=== PATIENT | female | born 1985 | race Caucasian/White ===

== ENCOUNTER 2017-06-23 12:08 | Emergency (ER) | payer OTHER, MEDICAID ==
[~2017-06-23] VITALS: Ht 170.2 cm; Wt 85.0 kg
[~2017-06-23 12:08] MED LIST: CIPRO500 MG OR; IBUPROFEN600 MG PO; LORTAB 5/3255 MG PO; NECON OR; PAIN RELIEF650 MG PO; PRENATABS RX PO; PYRIDIUM200 MG OR; TUMS500 MG PO
[2017-06-23 13:10] LABS: HEMATOCRIT 35.2 % (37.0-47.0); HEMOGLOBIN 12.3 g/dl (12.0-16.0); IMMATURE GRANULOCYTES 0.4 % (0.0-1.0); MEAN CELL VOLUME 91.2 fL CALC (80.0-100.0); MEAN CORPUSCULAR HGB 31.9 pG CALC (26.0-32.0); MEAN CORPUSCULAR HGB CONC 34.9 g/L CALC (32.0-36.0); NEUT# 5.95 thou/uL (2.00-7.15); RED BLOOD COUNT 3.86 mill/uL (4.20-5.60); RED CELL DISTRI WIDTH 12.6 % (11.5-15.5)
[2017-06-23 13:30] LABS: ALBUMIN 3.7 g/dL (3.2-5.0); ALKALINE PHOSPHATASE 42 u/l (38-126); ANION GAP 13 (6-22 (CALC)); BILIRUBIN, TOTAL 0.9 mg/dL (0.0-1.4); BUN 7 mg/dL (7-17); BUN/CREATININE RATIO 12 (12-20 (CALC)); CARBON DIOXIDE 23 mmol/l (22-30); CHLORIDE 106 mmol/l (95-108); CREATININE 0.6 mg/dL (0.5-1.0); GFR > 60 ML/MIN (>=60 (CALC)); GFR FOR AFR.AMER. > 60 ML/MIN (>=60 (CALC)); GLUCOSE 98 mg/dL (65-105); POTASSIUM 3.8 mmol/l (3.5-5.1); SGOT/AST 22 u/l (14-36); SGPT/ALT 25 u/l (9-52); SODIUM 138 mmol/l (137-146); TOTAL PROTEIN 6.4 g/dL (6.3-8.2)
[2017-06-23] MEDS ORDERED: CIPROFLOXACN500 MG PO (14:35)
[2017-06-23] MEDS ORDERED: LOMOTIL2.5 MG PO (14:35)
[2017-06-23 17:30] VITALS: BP 97/59
== END 2017-06-23 17:30 | disposition home or self-care (01) | DRG 781 ==
LOC: ED 12:08
PROVIDERS: Emergency Medicine
DX: O26.892 Other specified pregnancy related conditions, second trimester (principal); K52.9 Noninfective gastroenteritis and colitis, unspecified; R10.31 Right lower quadrant pain; Z3A.18 18 weeks gestation of pregnancy; R11.0 Nausea

== ENCOUNTER 2017-12-08 01:52 | Emergency (ER) | payer OTHER, MEDICAID ==
[~2017-12-08] VITALS: Ht 170.2 cm; Wt 72.4 kg
[~2017-12-08 01:52] MED LIST changes: +CIPROFLOXACN500 MG PO; +LOMOTIL2.5 MG PO
[2017-12-08 02:22] LABS: URINE BILIRUBIN - DIPSTICK SMALL (NEGATIVE); URINE BLOOD DIPSTICK LARGE (NEGATIVE); URINE COLOR ORANGE; URINE GLUCOSE - DIPSTICK 100 mg/dL (NEGATIVE); URINE KETONE TRACE mg/dL (NEGATIVE); URINE LEUK ESTERASE MODERATE (NEGATIVE); URINE NITRITE - DIPSTICK POSITIVE (Negative); URINE PH 5.5 (4.5-8.0); URINE PROTEIN - DIPSTICK >=300 mg/dL (NEG-TRACE); URINE UROBILINOGEN - DIPSTICK >=8.0 E.U./dL (0.2)
[2017-12-08 02:26] LABS: URINE CLARITY SL CLOUDY
[2017-12-08 02:52] LABS: URINE WBC 20-50 WBC/hpf (0-5)
[2017-12-08 02:57] LABS: URINE BACTERIA MODERATE hpf; URINE TRICHOMONAS RARE hpf
[2017-12-08] MEDS ORDERED: PYRIDIUM200 MG PO (03:04)
[2017-12-08] MEDS ORDERED: BACTRIM DS1 TAB PO (03:04)
[2017-12-08 03:15] VITALS: BP 119/76
== END 2017-12-08 03:17 | disposition home or self-care (01) | DRG 776 ==
LOC: ED 01:52
PROVIDERS: Emergency Medicine
DX: O86.20 Urinary tract infection following delivery, unspecified (principal); R19.7 Diarrhea, unspecified

== ENCOUNTER 2018-03-06 15:44 | Emergency (ER) | payer OTHER ==
[~2018-03-06] VITALS: Ht 170.2 cm; Wt 65.0 kg
[~2018-03-06 15:44] MED LIST changes: +BACTRIM DS1 TAB PO; +PYRIDIUM200 MG PO
[2018-03-06 17:28] LABS: URINE BILIRUBIN - DIPSTICK NEGATIVE (NEGATIVE); URINE BLOOD DIPSTICK MODERATE (NEGATIVE); URINE COLOR YELLOW; URINE GLUCOSE - DIPSTICK NEGATIVE (NEGATIVE); URINE KETONE NEGATIVE (NEGATIVE); URINE NITRITE - DIPSTICK NEGATIVE (Negative); URINE PH 6.5 (4.5-8.0); URINE PROTEIN - DIPSTICK NEGATIVE (NEG-TRACE); URINE UROBILINOGEN - DIPSTICK 0.2 E.U./dL (0.2)
[2018-03-06 17:30] LABS: URINE CLARITY HAZY; URINE LEUK ESTERASE SMALL (NEGATIVE)
[2018-03-06 17:35] LABS: HEMATOCRIT 34.2 % (37.0-47.0); HEMOGLOBIN 11.6 g/dl (12.0-16.0); IMMATURE GRANULOCYTES 0.4 % (0.0-5.0); MEAN CELL VOLUME 91.4 fL CALC (80.0-100.0); MEAN CORPUSCULAR HGB CONC 33.9 g/L CALC (32.0-36.0); NEUT# 6.64 thou/uL (2.00-7.15); RED BLOOD COUNT 3.74 mill/uL (4.20-5.60); RED CELL DISTRI WIDTH 12.6 % (11.5-15.5)
[2018-03-06 17:39] LABS: URINE SQUAMOUS EPITHELIAL CELL MODERATE EPI/hpf (0-FEW)
[2018-03-06 17:46] LABS: ALBUMIN 3.7 g/dL (3.2-5.0); ALKALINE PHOSPHATASE 86 u/l (38-126); ANION GAP 15 (6-22 (CALC)); BILIRUBIN, TOTAL 0.9 mg/dL (0.0-1.4); BUN 5 mg/dL (7-17); BUN/CREATININE RATIO 10 (12-20 (CALC)); CARBON DIOXIDE 25 mmol/l (22-30); CHLORIDE 101 mmol/l (95-108); CREATININE 0.5 mg/dL (0.5-1.0); GFR > 60 ML/MIN (>=60 (CALC)); GFR FOR AFR.AMER. > 60 ML/MIN (>=60 (CALC)); LIPASE 34 u/l (23-300); POTASSIUM 3.7 mmol/l (3.5-5.1); SGOT/AST 17 u/l (14-36); SGPT/ALT 31 u/l (9-52); SODIUM 137 mmol/l (137-146); TOTAL PROTEIN 6.5 g/dL (6.3-8.2)
[2018-03-06 20:10] VITALS: BP 103/56
== END 2018-03-06 20:12 | disposition short-term general hospital (02) | DRG 690 ==
LOC: ED 15:44
PROVIDERS: Family Medicine
DX: N39.0 Urinary tract infection, site not specified (principal); R10.31 Right lower quadrant pain; R93.5 Abnormal findings on diagnostic imaging of other abdominal regions, including retroperitoneum; Z90.710 Acquired absence of both cervix and uterus
CPT/HCPCS: Q9967